=== PATIENT | male | born 1950 | race Caucasian/White ===

== ENCOUNTER → 2019-06-12 | Outpatient (CLI) | payer OTHER | LOC: LAB.O 07:32 | PROVIDERS: ATTEND Nurse Practitioner | DX: Z00.00 Encounter for general adult medical examination without abnormal findings (principal); Z13.220 Encounter for screening for lipoid disorders; Z83.49 Family history of other endocrine, nutritional and metabolic diseases ==

== ENCOUNTER → 2019-06-14 | Outpatient (CLI) | payer OTHER | LOC: LAB.O 14:23 | PROVIDERS: ATTEND Nurse Practitioner | DX: R79.89 Other specified abnormal findings of blood chemistry (principal); R31.9 Hematuria, unspecified ==

== ENCOUNTER → 2019-06-21 | Outpatient (CLI) | payer OTHER ==
--- NOTE | 2019-06-21 16:34 | CT ---
EXAM DESCRIPTION: Abdomen/Pelvis w/wo Contrast CLINICAL HISTORY: 69 years Male, MICRO HEMATURIA COMPARISON: None available. TECHNIQUE: Contiguous 3 mm axial images were obtained from the lung bases to the level of the proximal femora before and after the administration of intravenous and oral contrast. Sagittal and coronal reconstructions were reviewed. FINDINGS: THORAX: The imaged lower thorax demonstrates no gross abnormality. LIVER: Ill-defined 1.4 cm hypodense lesion is identified in hepatic segment 6 on image #24, series 4. This remains indeterminate in etiology. GALLBLADDER: Grossly unremarkable. PANCREAS: Appears normal with no cystic or solid lesions. SPLEEN: Normal ADRENAL GLANDS: Normal with no nodules or masses. KIDNEYS: Both kidneys enhance symmetrically with no hydronephrosis or nephrolithiasis or perinephric fluid collections. No focal masses are identified. The visualized ureters appear grossly unremarkable. STOMACH: Not well distended limiting detailed evaluation. SMALL BOWEL: The small bowel loops demonstrate variable degrees of distention with no abnormal dilatation or other signs to suggest bowel obstruction. LARGE BOWEL: Moderate amount of fecal material is noted throughout the colon, consistent with constipation. The appendix is well-visualized and appears normal No evidence of free intraperitoneal air or fluid. RETROPERITONEUM: The abdominal aorta is nonaneurysmal with mild to moderate atherosclerosis. The inferior vena cava is normal in size and caliber. No abnormally enlarged retroperitoneal lymph nodes are identified. URINARY BLADDER:The urinary bladder is well-distended with no gross abnormality. The prostate gland measures 3.8 x 4.5 x 4.4 cm. The seminal vesicles appear normal. ADDITIONAL FINDINGS: Small fat-containing bilateral inguinal hernias are identified. BONES: Mild degenerative changes are identified in the visualized bones.No evidence of osteophytic or osteoblastic lesions. IMPRESSION: No evidence of bilateral renal/ureteric/bladder calculi. No urographic abnormality is noted. 1.4 cm ill-defined hypodense lesion is identified in hepatic segment 6. This remains indeterminate in etiology. MRI abdomen with and without contrast is recommended for further evaluation. This exam was performed according to our departmental dose-optimization program, which includes automated exposure control, adjustment of the mA and/or kV according to patient size and/or use of iterative reconstruction technique. Electronically signed by: Katherin Barger MD 06/21/2019 4:32 PM CDT
== END ==
LOC: CT 08:23
PROVIDERS: ATTEND Nurse Practitioner
DX: R31.21 Asymptomatic microscopic hematuria (principal); K76.9 Liver disease, unspecified